=== PATIENT | male | born 1945 | race Caucasian/White ===

== ENCOUNTER 2016-07-27 06:52 | Day surgery (SDC) | payer MEDICARE, BC ==
[2016-07-25 12:43] VITALS: BMI 37.2
[~2016-07-27 06:52] MED LIST: LACTATED RINGERS 1,000 ML IV SCH
[2016-07-27 07:15] VITALS: TEMP 97.1
[2016-07-27 07:16] LABS: Glucose,Whole Blood 144 mg/dL (75-99)
[2016-07-27] MEDS ORDERED: LIDOCAINE 1% INJ 10MG/ML (20 ML MDV) ONE (08:09)
[2016-07-27] MEDS ORDERED: PROPOFOL 10 MG/ML 20 ML VIAL IV ONE (08:09)
[2016-07-27 08:52] VITALS: RESP 18
--- NOTE | 2016-07-27 08:52 | P.PCN ---
Date of Procedure: 07/27/16 Procedure(s) Performed: Procedure: Colonoscopy and polypectomy. Preoperative diagnosis: Screening for neoplasia, patient has history of polyps. Postoperative diagnosis: 1. Diverticulosis with no evidence of acute diverticulitis or strictures. 2. Multiple small polyps snared but no large polyps or cancer. Preparation: HalfLytely prep. Sedation: Was provided by anesthesia. Brief clinical history: The patient is a 71-year-old male who is referred for this evaluation for screening for neoplasia because of history of polyps. He had 3 prior exams, the last was around 3 years ago and he had 2 or 3 polyps removed on his last exam. He has no abdominal complaints, bleeding or anemia. Procedure: With the patient on his left lateral decubitus position and after informed consent and adequate sedation, the perianal area was inspected and it did not show any fissures or fistulas. There were no masses felt on digital rectal examination. The Olympus CFQ 160L video colonoscope was then inserted in the rectum in the usual fashion and advanced to the cecum. There were multiple diverticular orifices seen scattered along the length of the bowel, mostly on the left side. There was no evidence of acute diverticulitis or strictures. A small polyp was snared around the hepatic flexure and was retrieved by suction and 3 small polyps were snared in the sigmoid and retrieved by suction as well, but there were no large polyps or cancer. The mucosa appeared healthy. I retroflexed the endoscope in the rectum before the endoscope was withdrawn. Prominent anal papillae were noted but there were no other findings or bleeding. The patient tolerated the procedure well. Plan: The patient was reassured. Discussed dietary measures. I recommended a repeat exam in 3-5 years. He will follow up with you as planned.
[2016-07-27 09:20] VITALS: BP 137/79; PULSE 59
== END 2016-07-27 09:28 | disposition home or self-care (01) ==
LOC: ORWHC2ENDO 06:52
DX: Z12.11 Encounter for screening for malignant neoplasm of colon (principal); Z86.010 Personal history of colon polyps; D12.3 Benign neoplasm of transverse colon; D12.5 Benign neoplasm of sigmoid colon; K57.30 Diverticulosis of large intestine without perforation or abscess without bleeding; E11.9 Type 2 diabetes mellitus without complications; L40.9 Psoriasis, unspecified; K62.89 Other specified diseases of anus and rectum; Z79.84 Long term (current) use of oral hypoglycemic drugs; Z79.4 Long term (current) use of insulin; Z88.5 Allergy status to narcotic agent; Z87.442 Personal history of urinary calculi
CPT/HCPCS: 88305; 45385; J2001; J2704

== ENCOUNTER → 2016-07-31 | Outpatient (CLI) | payer MEDICARE, BC ==
--- NOTE | 2016-08-01 10:11 | ECHOF ---
Referral Reason:R01.1 Heart Murmur MEASUREMENTS -------- HEIGHT: 172.7 cm WEIGHT: 111.1 kg BP: 135/63 RVIDd: 2.9 cm (< 3.3) IVSd: 1.2 cm (0.6 - 1.1) LVIDd: 4.6 cm (3.9 - 5.3) LVPWd: 1.2 cm (0.6 - 1.1) IVSs: 1.8 cm LVIDs: 3.2 cm LVPWs: 1.8 cm LA Diam: 3.3 cm (2.7 - 3.8) LAESV Index (A-L): 26.85 ml/m Ao Diam: 2.7 cm (2.0 - 3.7) AV Cusp: 1.8 cm (1.5 - 2.6) LA Diam: 2.8 cm (2.7 - 3.8) MV EXCURSION: 9.371 mm (> 18.000) MV EF SLOPE: 40 mm/s (70 - 150) EPSS: 0.6 cm MV E Daneyl: 0.78 m/s MV DecT: 282 ms MV A Danyel: 0.63 m/s MV E/A Ratio: 1.24 AV maxP.13 mmHg AV meanP.93 mmHg FINDINGS -------- Sinus rhythm. This was a technically adequate study. There is borderline concentric left ventricular hypertrophy. Overall left ventricular systolic function is normal with, an EF between 55 - 60 %. The right ventricle is normal in size. Normal LA size by volume 22+/-6 ml/m2. Aortic valve is trileaflet and is mildly thickened. Peak/mean gradient across the Aortic Valve is 14.13mmHg / 6.93mmHg. Mild mitral annular calcification present. Trace tricuspid regurgitation present. Pulmonic valve appears structurally normal. The aortic root size is normal. Normal inferior vena cava with normal inspiratory collapse consistent with estimated right atrial pressure of 5 mmHg. The pericardium is normal. CONCLUSIONS -------- 1. Sinus rhythm. 2. Trace tricuspid regurgitation present. 3. Pulmonic valve appears structurally normal. 4. The aortic root size is normal. 5. Normal inferior vena cava with normal inspiratory collapse consistent with estimated right atrial pressure of 5 mmHg. 6. The pericardium is normal. 7. This was a technically adequate study. 8. There is borderline concentric left ventricular hypertrophy. 9. Overall left ventricular systolic function is normal with, an EF between 55 - 60 %. 10. The right ventricle is normal in size. 11. Normal LA size by volume 22+/-6 ml/m2. 12. Aortic valve is trileaflet and is mildly thickened. 13. Peak/mean gradient across the Aortic Valve is 14.13mmHg / 6.93mmHg. 14. Mild mitral annular calcification present. HOT STAMP OPERATOR: Betty Oakley RDCS
== END | disposition home or self-care (01) ==
LOC: RADECHMAIN 11:06
PROVIDERS: ATTEND Family Medicine
DX: I36.1 Nonrheumatic tricuspid (valve) insufficiency (principal); I34.8 Other nonrheumatic mitral valve disorders
CPT/HCPCS: 93306

== ENCOUNTER → 2016-08-10 | Outpatient (CLI) | payer MEDICARE, BC ==
--- NOTE | 2016-08-10 20:29 | PN ---
DATE OF SERVICE: 08/10/2016 This patient is a 71-year-old gentleman who has been followed in the sleep center for treatment of obstructive sleep apnea/hypopnea syndrome. Last titration was done in 2014; since that time patient has lost about 18 pounds of weight. He continues to use his CPAP equipment every night but recently developed more sleepiness than before. [place] Sleepiness Scale has significantly increased to 19. His sleep schedule is from between 10 p.m. and midnight until 6 or 7 a.m. in the morning. Occasionally he takes naps during the day. MEDICATIONS: 1. Metformin. 2. Humalog. 3. ( ) 4. Fenofibrate. 5. Lamotrigine. PHYSICAL EXAMINATION: Patient is in no distress. VITAL SIGNS: BP 111/66, HR 65, RR 18. Height 67. Weight 239.8. BMI 37.4. Temperature 97.6. Oxygen saturation at room air 95%. HEENT: PERRLA, EOMI. Evaluation of oropharynx showed tongue protrudes midline; extremely low position of soft palate. NECK: Supple. No JVD. Thyroid is not palpable. LUNGS: Clear to percussion and to auscultation. Good air exchange. No wheezing or rhonchi. HEART: S1, S2 regular. No murmurs, gallops or rubs. ABDOMEN: Obese. EXTREMITIES: One plus bilateral edema. BUILDING CONSTRUCTION SUPERINTENDENT: Awake, alert, and oriented x3. Cranial nerves 2 to 7 intact. There is no fasciculation or atrophy noted. No focal deficits observed. IMPRESSION: 1. Obstructive sleep apnea-hypopnea syndrome. Patient continues to use his CPAP equipment but recently developed significant excessive daytime sleepiness. [place] Sleepiness Scale has increased to 19. 2. Obesity; body mass index 37.4. 3. Diabetes mellitus. 4. Hypertension. 5. Hyperlipidemia. PLAN: 1. We will repeat CPAP titration for reevaluation of patient's breathing during sleep. 2. During previous titration, a significant amount of leg movements was documented. We will check this for possible pharmacotherapy. 3. Sleep hygiene with regular time in bed for at least 8 hours. 4. No driving if feeling any sleepiness. Thank you very much for allowing me to participate in the management your patient. Sincerely, Yves Medley MD, PhD, FAASM. Diplomat of [place] [employer], Sleep Medicine Board by [place] [employer], [place] [employer]
== END | disposition home or self-care (01) ==
LOC: SLEEP 15:45
PROVIDERS: ATTEND Internal Medicine
DX: G47.33 Obstructive sleep apnea (adult) (pediatric) (principal); E66.9 Obesity, unspecified; Z68.37 Body mass index [BMI] 37.0-37.9, adult; E11.9 Type 2 diabetes mellitus without complications; Z79.4 Long term (current) use of insulin; I10 Essential (primary) hypertension; E78.5 Hyperlipidemia, unspecified; Z79.899 Other long term (current) drug therapy

== ENCOUNTER → 2016-12-07 | Outpatient (CLI) | payer MEDICARE, BC ==
--- NOTE | 2016-12-07 23:11 | PN ---
DATE OF SERVICE: 12/07/2016 This patient is a 71-year-old gentleman who has been followed in the sleep center for treatment of obstructive sleep apnea/hypopnea syndrome. Recently he underwent CPAP titration, and I discussed the results of the titration with the patient. With the pressure at 13 cm of water, his respiration was under full control. At that pressure, apnea/hypopnea index was 0 with oxygen level about 93.8%. The patient was at that pressure for 29 minutes in REM sleep and 32 minutes in non-REM sleep. The patient continued to use his equipment every night. He brought his CPAP unit here. I checked the CPAP unit. Usage is 29 out of 30 nights for more than 4 hours; average 7.5 hours per night. CPAP pressure is 13. The patient had a significant amount of periodic limb movements during titration , which also could be the reason for his tiredness and sleepiness during the day. Today his [place] Sleepiness Scale is 19. MEDICATIONS: 1. Metformin. 2. Novolog. 3. Tudjeo. 4. Fenofibrate. During physical exam, patient is in no distress. BP 128/65, HR 70, RR 16. Height 5 feet 8 inches. Weight 241. BMI 36.6. Temperature 98.1. Oxygen saturation at room air 96%. HEENT: PERRLA. EOMI. Evaluation of oropharynx shows low position of soft palate. NECK: Supple. No JVD. Thyroid is not palpable. LUNGS: Clear to percussion and to auscultation. Good air exchange. No wheezing or rhonchi. HEART: S1, S2. ABDOMEN: Obese. EXTREMITIES: No clubbing or cyanosis. MAKING LINE WORKER: Awake, alert and oriented x3. Cranial nerves 2 to 7 intact. There is no fasciculation or atrophy noted. No focal deficits observed. IMPRESSION: 1. Obstructive sleep apnea/hypopnea syndrome, under control with CPAP at 13 cm of water. Patient demonstrated practically 100% compliance with treatment, benefitting from treatment. 2. It was documented 76.7 periodic limb movements per hour with 15.4 microarousals per hour during titration. 3. Hypertension. 4. Hyperlipidemia. 5. Diabetes mellitus. 6. Obesity. PLAN: 1. Continue treatment with CPAP every night for the whole night with a pressure of 13 cm of water. 2. Losing weight. 3. I will start the patient on small doses of dopamine agonist for treatment of periodic limb movements. 4. No driving if feeling any sleepiness. 5. We will continue to submit prescriptions for all necessary CPAP supplies. Thank you very much for allowing me to participate in the management of your patient. Sincerely, Yves Medley MD, PhD, FAASM Diplomat of [place] [employer] Sleep Medicine Board by [employer] [employer] Gift Shop Assistant of [facility] [place]
== END | disposition home or self-care (01) ==
LOC: SLEEP 13:01
PROVIDERS: ATTEND Internal Medicine
DX: G47.33 Obstructive sleep apnea (adult) (pediatric) (principal); I10 Essential (primary) hypertension; G47.61 Periodic limb movement disorder; E78.5 Hyperlipidemia, unspecified; E11.9 Type 2 diabetes mellitus without complications; E66.9 Obesity, unspecified; Z79.4 Long term (current) use of insulin

== ENCOUNTER → 2017-02-28 | Outpatient (CLI) | payer MEDICARE, BC ==
[2017-02-28 13:32] LABS: ALT 53 U/L (21-72); AST 37 U/L (17-59); Alkaline Phosphatase 56 U/L (38-126); Anion Gap 9 mmol/L; Blood Urea Nitrogen 11 mg/dL (9-20); Calcium 9.5 mg/dL (8.4-10.2); Carbon Dioxide 26 mmol/L (22-30); Chloride 108 mmol/L (98-107); Cholesterol 119 mg/dL (<200); Glucose 104 mg/dL (74-99); HDL Cholesterol 41 mg/dL (40-60); Non-African American GFR(MDRD) >60 (>60 ml/min/1.73 sqM); Potassium 4.8 mmol/L (3.5-5.1); Sodium 143 mmol/L (137-145); Total Bilirubin 0.6 mg/dL (0.2-1.3); Total Protein 6.9 g/dL (6.3-8.2)
[2017-02-28 19:51] LABS: Urine Creatinine 132.5 mg/dL
== END | disposition home or self-care (01) ==
LOC: LABWHC1 12:22
PROVIDERS: ATTEND Internal Medicine Endocrinology, Diabetes & Metabolism
DX: E11.65 Type 2 diabetes mellitus with hyperglycemia (principal)
CPT/HCPCS: 36415; 80053; 80061; 82043; 82570; 84443; 84681

== ENCOUNTER → 2017-04-24 | Outpatient (CLI) | payer MEDICARE, BC ==
--- NOTE | 2017-04-24 08:24 | US ---
EXAMINATION TYPE: US abdomen complete DATE OF EXAM: 04/24/2017 COMPARISON: NONE CLINICAL HISTORY: D61.818 PARCYTOPENIA. No symptoms, appendectomy EXAM MEASUREMENTS: Liver Length: 21.3 cm Gallbladder Wall: 0.2 cm CBD: 0.4 cm Spleen: 15.0 cm Right Kidney: 10.8 x 5.6 x 5.7 cm Left Kidney: 11.9 x 6.0 x 7.1 cm large body habitus limits exam Pancreas: limited views appear wnl Liver: heterogeneous and enlarged Gallbladder: wnl Evidence for sonographic Pagan's sign: no CBD: wnl Spleen: enlarged Right Kidney: wnl Left Kidney: wnl Upper IVC: wnl Abd Aorta: limited views due to bowel gas IMPRESSION: 1. Hepatomegaly correlate for hepatitis, fatty infiltration, or diffuse hepatocellular disease includ ing diffuse neoplastic process. 2. Splenomegaly.
== END | disposition home or self-care (01) ==
LOC: RADUSWWP 04-23 08:50
PROVIDERS: ATTEND Family Medicine
DX: R16.2 Hepatomegaly with splenomegaly, not elsewhere classified (principal)
CPT/HCPCS: 76700; 80074; 82105

== ENCOUNTER → 2017-05-17 | Outpatient (CLI) | payer MEDICARE, BC ==
[2017-05-17 15:42] LABS: INR 1.2 (<1.2); Prothrombin Time 11.8 sec (9.0-12.0)
[2017-05-17 15:46] LABS: HCT 41.5 % (39.0-53.0); HGB 13.5 gm/dL (13.0-17.5); MCH 30.5 pg (25.0-35.0); MCHC 32.6 g/dL (31.0-37.0); MCV 93.4 fL (80.0-100.0); Mean Platelet Volume 6.9; RBC 4.45 m/uL (4.30-5.90); RDW 13.5 % (11.5-15.5); WBC 2.4 k/uL (3.8-10.6)
[2017-05-17 15:48] LABS: Albumin 4.3 g/dL (3.5-5.0); Bilirubin, Delta 0.2 mg/dL (0.0-0.2); Bilirubin,Unconjugated 0.3 mg/dL (0.0-1.1); Total Bilirubin 0.5 mg/dL (0.2-1.3)
[2017-05-17 16:10] LABS: Platelet Count 99 k/uL (150-450)
[2017-05-17 18:57] LABS: Iron Saturation 19.21 (15.00-50.00); Protein, Total 6.8 g/dL (6.2-8.2)
[2017-05-18 13:47] LABS: Albumin 4.43 g/dL (3.80-4.90); Gamma Globulin 0.68 g/dL (0.70-1.50)
== END | disposition home or self-care (01) ==
LOC: LABWHC1 15:09
PROVIDERS: ATTEND Physician Assistant
DX: R16.2 Hepatomegaly with splenomegaly, not elsewhere classified (principal)
CPT/HCPCS: 36415; 80076; 82103; 82728; 83516; 83540; 83550; 84165; 85027; 85610; 86038

== ENCOUNTER → 2017-10-25 | Outpatient (CLI) | payer MEDICARE, BC ==
[2017-10-25 13:15] LABS: HCT 40.7 % (39.0-53.0); HGB 13.7 gm/dL (13.0-17.5); MCH 31.5 pg (25.0-35.0); MCHC 33.6 g/dL (31.0-37.0); MCV 93.7 fL (80.0-100.0); Mean Platelet Volume 6.4; RBC 4.34 m/uL (4.30-5.90); RDW 14.2 % (11.5-15.5); WBC 2.5 k/uL (3.8-10.6)
[2017-10-25 13:25] LABS: Albumin 4.1 g/dL (3.5-5.0); Bilirubin, Delta 0.3 mg/dL (0.0-0.2); Bilirubin,Unconjugated 0.1 mg/dL (0.0-1.1); Total Bilirubin 0.4 mg/dL (0.2-1.3); Total Protein 6.3 g/dL (6.3-8.2)
[2017-10-25 13:42] LABS: Platelet Count 92 k/uL (150-450)
== END | disposition home or self-care (01) ==
LOC: LABWHC1 12:48
PROVIDERS: ATTEND Physician Assistant
DX: R16.2 Hepatomegaly with splenomegaly, not elsewhere classified (principal)
CPT/HCPCS: 36415; 80076; 82105; 85027

== ENCOUNTER → 2017-10-25 | Outpatient (CLI) | payer MEDICARE, BC ==
--- NOTE | 2017-10-25 13:43 | XR ---
EXAMINATION TYPE: XR chest 2V DATE OF EXAM: 10/25/2017 COMPARISON: NONE HISTORY: Asbestos exposure TECHNIQUE: Frontal and lateral views of the chest are obtained. FINDINGS: Patchy bibasilar scarring and/or atelectasis is present. There is no suspicious focal air s pace opacity, pleural effusion, or pneumothorax seen. The cardiac silhouette size is within normal l imits. There is multilevel spurring in the thoracic spine. IMPRESSION: Patchy bibasilar scarring and/or atelectasis.
== END | disposition home or self-care (01) ==
LOC: RADXRMAIN 12:18
PROVIDERS: ATTEND Family Medicine
DX: Z77.090 Contact with and (suspected) exposure to asbestos (principal)
CPT/HCPCS: 71046

== ENCOUNTER → 2018-01-10 | Outpatient (CLI) | payer MEDICARE, BC ==
--- NOTE | 2018-01-10 14:49 | SFUN ---
SLEEP CENTER FOLLOW UP NOTE DATE OF SERVICE: 01/10/2018 A 72-year-old gentleman who has been followed in the Sleep Center for treatment of obstructive sleep apnea-hypopnea syndrome. Patient continued to use his CPAP equipment every night without problems, likes his mask and machine. [place] Sleepiness Scale today is 14. When he has taking any naps, he is also using his machine. I checked his CPAP unit, CPAP pressure of 13 cm of water. The patient using it every night with average time in bed 7.7 hours according to machine reading. MEDICATIONS: Metformin, NovoLog, Toujeo, fenofibrate. PHYSICAL EXAM: Patient in no distress. BP 119/57, HR 72, RR 16, height 5, 7-1/2, weight 243.2, BMI 37.4, temperature 98.2, oxygen saturation room air 96%. OROPHARYNX: Low position of soft palate. ABDOMEN: Slightly obese. Neck Supple, no JVD. Thyroid is not palpable. LUNGS Clear to percussion and to auscultation. Good air exchange. No wheezing or rhonchi. HEART S1, S2 regular. No murmurs, gallops, or rubs. EXTREMITIES No clubbing or cyanosis. 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 Cranial nerves 2 to 7 intact. There is no fasciculation or atrophy. noted. No focal deficits observed. IMPRESSION: 1. Obstructive sleep apnea-hypopnea syndrome. Patient demonstrated practically 100% compliance with treatment benefitting from treatment to periodic limb movements, but clinically patient does not feel any problems with the legs. 2. Hypertension. 3. Hyperlipidemia. 4. Diabetes mellitus. 5. Obesity. PLAN: 1. Patient will continue to use CPAP equipment every night for the whole night. We will maintain prescription for all necessary CPAP supplies including a full-face mask, tube, filters. 2. Losing weight. 3. Sleep hygiene with regular time in bed for at least 8 hours. 4. No driving if feeling any sleepiness. 5. Followup visit in 1 year or earlier if patient has any problems. Thank you very much for allowing me to participate in the management of your patient. Sincerely, Yves Medley MD, PhD, FAASM Diplomat of [place] [employer] [place] [employer] Bandoleer Straightener Stamper of [facility] [place] MMODL / IJN: [id number] /
== END | disposition home or self-care (01) ==
LOC: SLEEP 13:08
PROVIDERS: ATTEND Internal Medicine
DX: G47.33 Obstructive sleep apnea (adult) (pediatric) (principal); I10 Essential (primary) hypertension; E78.5 Hyperlipidemia, unspecified; E11.9 Type 2 diabetes mellitus without complications; E66.9 Obesity, unspecified; Z79.84 Long term (current) use of oral hypoglycemic drugs; Z79.4 Long term (current) use of insulin; Z79.899 Other long term (current) drug therapy; Z99.89 Dependence on other enabling machines and devices; Z68.37 Body mass index [BMI] 37.0-37.9, adult

== ENCOUNTER 2018-03-22 02:10 | Emergency (ER) | payer MEDICARE, BC ==
[2018-03-22 02:19] VITALS: PULSE 77
[2018-03-22] MEDS ORDERED: KETOROLAC 30 MG/ML 1 ML VIAL IVP STA (02:36)
[2018-03-22] MEDS ORDERED: HYDROmorphone 1 MG/ML 1 ML SYRINGE IVP STA (02:36)
[2018-03-22] MEDS ORDERED: ONDANSETRON 4 MG/2 ML VIAL IVP STA (02:37)
--- NOTE | 2018-03-22 02:40 | ED ---
Abdominal Pain HPI - General Chief Complaint: Abdominal Pain Stated Complaint: kidney pain Time Seen by Provider: 03/22/18 02:10 Source: family Mode of arrival: wheelchair Limitations: no limitations - History of Present Illness Initial Comments: This patient is 72-year-old man who presents to be evaluated for left flank pain that started between 5 and 6 PM tonight. He states that it is very reminiscent of similar episodes of kidney stone. He states he was not able to manage his symptoms at home. Onset/Timin -: hour(s) Location: L flank Radiation: none Migration to: no migration Severity: severe Quality: sharp Consistency: colicky Improves With: nothing Worsens With: nothing Associated Symptoms: nausea - Related Data Home Medications Medication Instructions Recorded Confirmed lamoTRIgine [LaMICtal] 25 mg PO BID 11/26/13 07/27/16 metFORMIN HCL 1,000 mg PO BID 11/26/13 07/27/16 INSULIN LISPRO (HumaLOG) [HumaLOG] 5 units SQ 1000,1800 10/27/15 07/27/16 Insulin Glargine,Hum.rec.anlog 36 units SQ HS PRN 10/27/15 07/27/16 [Toujeo Solostar] Fenofibrate Nanocrystallized 145 mg PO DAILY 07/25/16 07/27/16 [Fenofibrate] Previous Rx's Medication Instructions Recorded Hydrocodone/Acetaminophen [[place] 1 each PO Q6HR PRN #15 tab 03/22/18 5-325] Ondansetron Odt [Zofran ODT] 4 mg PO Q8HR PRN #10 tab 03/22/18 Tamsulosin [Flomax] 0.4 mg PO DAILY #14 cap 03/22/18 Allergies Allergy/AdvReac Type Severity Reaction Status Date / Time codeine AdvReac Nausea Verified 03/22/18 02:19 Review of Systems ROS Statement: Those systems with pertinent positive or pertinent negative responses have been documented in the HPI. ROS Other: All systems not noted in ROS Statement are negative. Constitutional: Denies: fever, chills Respiratory: Denies: cough, dyspnea Cardiovascular: Denies: chest pain, palpitations, edema, syncope Gastrointestinal: Reports: abdominal pain, nausea. Denies: vomiting, diarrhea, constipation, melena, hematochezia Genitourinary: Denies: dysuria, hematuria Musculoskeletal: Denies: back pain Skin: Denies: rash Neurological: Denies: headache, weakness, numbness Past Medical History Past Medical History: Diabetes Mellitus, Eye Disorder, Renal Disease, Sleep Apnea/CPAP/BIPAP Additional Past Medical History / Comment(s): PSORIASIS. Uses CPAP. Meniere' s. Hx of kidney stones- multiple. LT EYE MYOPATHY. History of Any Multi-Drug Resistant Organisms: None Reported Past Surgical History: Appendectomy, Back Surgery, Orthopedic Surgery Additional Past Surgical History / Comment(s): Several lithotripsies, Cystoscopy. EXC JUVE Cataract. Metal plate in back. LT knee surgery. Past Anesthesia/Blood Transfusion Reactions: No Reported Reaction Past Psychological History: Bipolar Smoking Status: Former smoker Past Alcohol Use History: None Reported Past Drug Use History: None Reported - Past Family History Mother Family Medical History: No Reported History General Exam Limitations: no limitations General appearance: alert, in no apparent distress Head exam: Present: atraumatic, normocephalic Eye exam: Present: normal appearance. Absent: scleral icterus, conjunctival injection Respiratory exam: Present: normal lung sounds bilaterally. Absent: respiratory distress, wheezes, rales, rhonchi, stridor Cardiovascular Exam: Present: regular rate, normal rhythm, normal heart sounds. Absent: systolic murmur, diastolic murmur, rubs, gallop GI/Abdominal exam: Present: soft, normal bowel sounds. Absent: distended, tenderness, guarding, rebound, rigid, mass, pulsatile mass, hernia Extremities exam: Present: normal inspection, normal capillary refill. Absent: pedal edema, calf tenderness Back exam: Present: normal inspection, CVA tenderness (L). Absent: CVA tenderness (R) Neurological exam: Present: alert Skin exam: Present: warm, dry, intact, normal color. Absent: rash Course Vital Signs 03/22/18 03/22/18 02:16 05:00 Temperature 97.9 F 97 F L Pulse Rate 77 77 Respiratory 18 20 Rate Blood Pressure 165/77 139/79 O2 Sat by Pulse 95 98 Oximetry Medical Decision Making - Lab Data Result diagrams: 03/22/18 02:30 03/22/18 02:30 Lab Results 03/22/18 03/22/18 03/22/18 Range/Units 02:30 02:30 03:33 WBC 3.7 L (3.8-10.6) k/uL RBC 4.75 (4.30-5.90) m/uL Hgb 14.2 (13.0-17.5) gm/dL Hct 44.3 (39.0-53.0) % MCV 93.2 (80.0-100.0) fL MCH 29.8 (25.0-35.0) pg MCHC 32.0 (31.0-37.0) g/dL RDW 13.6 (11.5-15.5) % Plt Count 100 L (150-450) k/uL Neutrophils % 75 % Lymphocytes % 14 % Monocytes % 6 % Eosinophils % 4 % Basophils % 1 % Neutrophils # 2.8 (1.3-7.7) k/uL Lymphocytes # 0.5 L (1.0-4.8) k/uL Monocytes # 0.2 (0-1.0) k/uL Eosinophils # 0.1 (0-0.7) k/uL Basophils # 0.0 (0-0.2) k/uL Sodium 142 (137-145) mmol/L Potassium 4.5 (3.5-5.1) mmol/L Chloride 108 H (98-107) mmol/L Carbon Dioxide 25 (22-30) mmol/L Anion Gap 9 mmol/L BUN 17 (9-20) mg/dL Creatinine 0.76 (0.66-1.25) mg/dL Est GFR (CKD-EPI)AfAm >90 (>60 ml/min/1.73 sqM) Est GFR (CKD-EPI)NonAf >90 (>60 ml/min/1.73 sqM) Glucose 193 H (74-99) mg/dL Calcium 10.5 H (8.4-10.2) mg/dL Total Bilirubin 0.5 (0.2-1.3) mg/dL AST 44 (17-59) U/L ALT 58 (21-72) U/L Alkaline Phosphatase 66 (38-126) U/L Total Protein 7.2 (6.3-8.2) g/dL Albumin 4.4 (3.5-5.0) g/dL Amylase 56 (30-110) U/L Lipase 125 (23-300) U/L Urine Color Light Red Urine Appearance Cloudy (Clear) Urine pH 5.5 (5.0-8.0) Ur Specific [place] 1.014 (1.001-1.035) Urine Protein Trace H (Negative) Urine Glucose (UA) 4+ H (Negative) Urine Ketones Trace H (Negative) Urine Blood Large H (Negative) Urine Nitrite Negative (Negative) Urine Bilirubin Negative (Negative) Urine Urobilinogen <2.0 (<2.0) mg/dL Ur Leukocyte Esterase Negative (Negative) Urine RBC >182 H (0-5) /hpf Urine WBC 6 H (0-5) /hpf Urine Mucus Rare H (None) /hpf Disposition Clinical Impression: Calculus of kidney Disposition: HOME SELF-CARE Condition: Good Instructions: Kidney Stones (ED) Prescriptions: Hydrocodone/Acetaminophen [[place] 5-325] 1 each PO Q6HR PRN #15 tab PRN Reason: Pain Ondansetron Odt [Zofran ODT] 4 mg PO Q8HR PRN #10 tab PRN Reason: Nausea Tamsulosin [Flomax] 0.4 mg PO DAILY #14 cap Is patient prescribed a controlled substance at d/c from ED?: Yes When asked, does pt state using other controlled substances?: No If prescribed controlled substance>3 days was MAPS reviewed?: Prescribed <3 Days If opioid is for acute pain is fill amount 7 days or less?: Yes If Rx opioid, was Start Talking consent form obtained?: Yes Referrals: Jian Blood MD [Primary Care Provider] - 1-2 days Marco Antonio Hastings MD [STAFF PHYSICIAN] - 1-2 days
[2018-03-22 02:44] LABS: Basophils % (A) 1 %; Eosinophils # (A) 0.1 k/uL (0-0.7); Eosinophils % (A) 4 %; HCT 44.3 % (39.0-53.0); HGB 14.2 gm/dL (13.0-17.5); Lymphocytes # (A) 0.5 k/uL (1.0-4.8); Lymphocytes % (A) 14 %; MCH 29.8 pg (25.0-35.0); MCV 93.2 fL (80.0-100.0); Mean Platelet Volume 6.6; Monocytes # (A) 0.2 k/uL (0-1.0); Monocytes % (A) 6 %; Neutrophils # (A) 2.8 k/uL (1.3-7.7); Neutrophils % (A) 75 %; Platelet Count 100 k/uL (150-450); RBC 4.75 m/uL (4.30-5.90); RDW 13.6 % (11.5-15.5); WBC 3.7 k/uL (3.8-10.6)
[2018-03-22 02:56] LABS: ALT 58 U/L (21-72); AST 44 U/L (17-59); Albumin 4.4 g/dL (3.5-5.0); Alkaline Phosphatase 66 U/L (38-126); Amylase 56 U/L (30-110); Anion Gap 9 mmol/L; Blood Urea Nitrogen 17 mg/dL (9-20); Calcium 10.5 mg/dL (8.4-10.2); Carbon Dioxide 25 mmol/L (22-30); Chloride 108 mmol/L (98-107); Glucose 193 mg/dL (74-99); Lipase 125 U/L (23-300); Potassium 4.5 mmol/L (3.5-5.1); Sodium 142 mmol/L (137-145); Total Bilirubin 0.5 mg/dL (0.2-1.3); Total Protein 7.2 g/dL (6.3-8.2)
--- NOTE | 2018-03-22 03:15 | XR ---
EXAMINATION TYPE: XR KUB DATE OF EXAM: 03/22/2018 COMPARISON: 02/14/2016 HISTORY: Left-sided renal stone TECHNIQUE: 2 views upright FINDINGS: There is no sign of intestinal obstruction or pneumoperitoneum. Fecal pattern is normal. I see no pathologic calcifications over the kidneys. There is lower lumbar spine posterior fusion surge ry. There is no sign of a mass. Lung bases are clear. IMPRESSION: Nonacute abdomen. No renal calculus identified.
[2018-03-22 03:46] LABS: Appearance,Urine Cloudy (Clear); Bilirubin,Urine Negative (Negative); Blood,Urine Large (Negative); Color,Urine Light Red; Glucose,Urine (UA) 4+ (Negative); Ketones,Urine Trace (Negative); Leukocyte Esterase,Urine Negative (Negative); Mucus,Urine Rare /hpf; Nitrite,Urine Negative (Negative); PH, Urine 5.5 (5.0-8.0); Protein,Urine Trace (Negative); RBC,Urine >182 /hpf (0-5); Specific Gravity,Urine 1.014 (1.001-1.035); Urobilinogen,Urine <2.0 mg/dL (<2.0); WBC,Urine 6 /hpf (0-5)
--- NOTE | 2018-03-22 04:12 | CT ---
EXAMINATION TYPE: CT abdomen pelvis wo con DATE OF EXAM: 03/22/2018 COMPARISON: 07/21/2013 HISTORY: left sided flank pain CT DLP: 1192 mGycm Automated exposure control for dose reduction was used. TECHNIQUE: Helical acquisition of images was performed from the lung bases through the pelvis. FINDINGS: There is minimal scarring or subsegmental atelectasis at the lung bases. Heart size is normal. There is no pericardial effusion. Stomach appears normal. Spleen is enlarged and measures 18 cm. Liver is l arge. Gallbladder is not dilated. There is no dilated ducts. There is no evidence of pancreatic mass. There is no adrenal mass. There is left-sided hydronephrosis and hydroureter. There is left-sided per inephric edema. There is a 7 mm obstructing calculus in the lower left ureter. This is between the mi ddle and distal thirds. There is mild left-sided perinephric edema. There is no retroperitoneal adeno shea. Abdominal aorta is atheromatous. There is 2 mm calculus lower pole right kidney. There are a f ew other left renal calculi within the left kidney that measure up to 3 mm. Bladder distends smoothly. Prostate is mildly enlarged and measures 5 cm. There is no inguinal hernia . There is no mesenteric edema or adenopathy. I see no intestinal wall thickening. There is no eviden ce of a bowel obstruction. There are multiple scattered colonic diverticula without evidence of diver ticulitis. There is posterior fusion surgery in the lower lumbar spine. I see no compression fracture . There is no focal bone destruction. Bony pelvis is intact. There is spurring in the lumbar spine. IMPRESSION: OBSTRUCTING CALCULUS IN THE LOWER LEFT URETER WITH LEFT-SIDED HYDRONEPHROSIS AND HYDROURETER. Multipl e bilateral renal calculi.
[2018-03-22] MEDS ORDERED: TAMSULOSIN 0.4 MG CAP.ER.24H PO STA (04:44)
[2018-03-22 05:01] VITALS: BP 139/79; RESP 20; TEMP 97
== END 2018-03-22 05:01 | disposition home or self-care (01) ==
LOC: EC 02:10
DX: N20.0 Calculus of kidney (principal); E11.9 Type 2 diabetes mellitus without complications; G47.30 Sleep apnea, unspecified; Z99.89 Dependence on other enabling machines and devices; F31.9 Bipolar disorder, unspecified; Z87.891 Personal history of nicotine dependence; Z79.4 Long term (current) use of insulin; Z79.899 Other long term (current) drug therapy; Z88.5 Allergy status to narcotic agent; Z90.49 Acquired absence of other specified parts of digestive tract
CPT/HCPCS: 36415; 80053; 82150; 83690; 85025; 81001; 74018; 74176; 99284; 96374; 96375 ×2; J2405; J1885; J1170